=== PATIENT | male | born 1995 | race African-American/Black ===

== ENCOUNTER 2024-10-11 09:44 | Emergency (ER) | payer SELFPAY ==
[2024-10-11 10:58] LABS: Absolute Eosinophils 0.1 K/uL (0-0.5); Absolute Lymphocytes (CBC) 0.5 K/uL (0.7-4.9); Absolute Monocytes 1.4 K/uL (0.1-1.3); Absolute Neutrophil 2.2 K/uL (1.8-8.0); Basophils % 0.4 % (0-1.3); Eosinophils % 2.5 % (0-4.4); Hematocrit 33.5 % (39.6-49.0); Lymphocytes % 12.7 % (15.3-44.8); MCH 25.9 pg (27.0-35.0); MCV 78.3 fL (80-100); MPV 6.6 fL (7.6-11.3); Monocytes % 33.9 % (3.3-12.3); Neutrophils % 50.5 % (41.7-73.7); Nucleated Red Blood Cells % 0.1 % (0-0); Platelets 287 thou/uL (152-406); RBC Red Blood Cell Count 4.27 M/uL (4.33-5.43); Red Cell Distribution Width 16.9 % (12.1-15.2)
[2024-10-11] MEDS ORDERED: ONDANSETRON 4 MG/2 ML VIAL ONE (10:58)
[2024-10-11] MEDS ORDERED: NA CHLORIDE 0.9% 1,000 ML ONE (10:58)
[2024-10-11] MEDS ORDERED: DICYCLOMINE HCL 20 MG/2 ML AMP IM ONE (10:58)
[2024-10-11 11:18] LABS: Albumin 2.9 g/dL (3.4-5.0); Albumin/Globulin Ratio 0.5 (1.1-1.8); Anion Gap 9.2 mEq/L (5.0-15.0); Bilirubin Total 0.2 mg/dL (0.2-1.0); Protein, Total 8.9 g/dL (6.4-8.2)
[2024-10-11 11:26] LABS: Potassium 2.2 mEq/L (3.5-5.1)
[2024-10-11 11:28] LABS: Atypical Lymphocytes 2 %; Band Neutrophils 4 % (0-1); Blood Morphology Comment NOT SEEN (NOT SEEN); Differential Total Cells Count 100; Eosinophils 3 % (0-3); Lymphocytes 17 % (15-42); Monocytes 21 % (0-10); Platelet Estimate ADEQ; Platelets, Giant RARE; Segmented Neutrophils 53 % (40-80); Toxic Granulation NOTED
[2024-10-11 11:48] LABS: Specific Gravity 1.013 (1.005-1.030); Sqamous Epithelial <5 /HPF (None Seen); Urine Bacteria None Seen /HPF (<20); Urine Bilirubin NEGATIVE (Negative); Urine Blood Negative (Negative); Urine Clarity Turbid (Clear); Urine Color Light-Yellow (Yellow); Urine Culture Reflex Order NOT NEEDED; Urine Glucose NEGATIVE (Negative); Urine Ketones NEGATIVE (Negative); Urine Microscopic Reflex YN ORDER UMIC; Urine Nitrite NEGATIVE (Negative); Urine Protein 1+ (Negative); Urine RBC <5 /HPF (None Seen); Urine Urobilinogen Normal (Normal); Urine WBC <5 /HPF (<5); Urine pH 6.5 (5.0-7.0)
[2024-10-11] MEDS ORDERED: KCL 20 MEQ/100 mL IVPB 100 ML IV ONE (11:59)
[2024-10-11] MEDS ORDERED: NA CHLORIDE 0.9% 500 ML ONE (11:59)
[2024-10-11] MEDS ORDERED: KETOROLAC 30 MG/ML INJ ONE (12:31)
--- NOTE | 2024-10-11 14:11 | RAD REPORT ---
EXAMINATION: CT Abdomen Pelvis W Contrast CLINICAL INDICATION: Male, 29 years old. diarrhea;Abd pain TECHNIQUE: CT abdomen and pelvis was performed, after the administration of IV contrast, as per [facility] protocol. Axial, sagittal and coronal reconstructions were obtained. One or more of the following dose reduction techniques were used: Automated exposure control, adjustment of the mA and k V according to patient size, and iterative reconstruction. Unless otherwise specified, incidental findings do not require dedicated imaging follow-up. COMPARISON: No prior exam. FINDINGS: LOWER CHEST: The visualized lung bases are clear. LIVER: Normal in size and contour. No focal lesion. BILIARY SYSTEM: No suspicious abnormalities. SPLEEN: Normal size. No focal lesion. PANCREAS: No mass, ductal dilation, or ashley-pancreatic fluid. ADRENALS: Normal; no mass. KIDNEYS: Normal size and contour. No hydronephrosis. URINARY BLADDER: Suboptimally distended limiting evaluation. GASTROINTESTINAL TRACT: Mild mucosal thickening in hyperenhancement throughout the colon, especially the descending colon, with fluid opacification of the nondistended colon. No evidence of free air, significant intra-abdominal free fluid, bowel obstruction or abscess. APPENDIX: Normal appendix. LYMPH NODES: No lymphadenopathy. MUSCULOSKELETAL: No acute or suspicious osseous abnormality. ADDITIONAL FINDINGS: None. IMPRESSION: Mild mucosal thickening and hyperenhancement throughout the colon, may suggest nonspecific infectious or inflammatory colitis. No other acute or concerning abnormalities seen in the abdomen or pelvis.
[2024-10-11] MEDS ORDERED: metroNIDAZOLE 500 MG TABLET ONE (14:36)
[2024-10-11] MEDS ORDERED: CIPROFLOXACIN HCL 500 MG TAB ONE (14:36)
[2024-10-11] MEDS ORDERED: POTASSIUM 25 MEQ EFFERV TAB ONE ×2 (14:37→14:44)
[2024-10-11] MEDS ORDERED: FENTANYL CITR 100 MCG/2 ML ONE (14:37)
--- NOTE | 2024-10-11 15:05 | ER ---
Nurse's Notes [facility] Name: Murali Bailey Age: 29 yrs Sex: Male : 1995 Arrival Date: 10/11/2024 Time: 09:44 Bed 20 Private MD: Diagnosis: Indeterminate colitis;Hypokalemia;Diarrhea, unspecified Presentation: 10/11 10:03 Chief complaint: Patient states: nausea, diarrhea, and body chills. iw 10:03 Coronavirus screen: Client denies travel out of the [place] in the last 14 days. Ebola iw Screen: No symptoms or risks identified at this time. Initial Sepsis Screen: Does the patient meet any 2 criteria? No. Patient's initial sepsis screen is negative. Does the patient have a suspected source of infection? No. Patient's initial sepsis screen is negative. Risk Assessment: Do you want to hurt yourself or someone else? Patient reports no desire to harm self or others. Onset of symptoms was October 11, 2024. 10:03 Method Of Arrival: Ambulatory iw 10:03 Acuity: DARWIN 3 iw Triage Assessment: 10:20 General: Appears comfortable, Behavior is calm, cooperative. Pain: Complains of pain in iw abdomen Pain does not radiate. Pain currently is 8 out of 10 on a pain scale. Quality of pain is described as crampy. Neuro: Level of Consciousness is awake, alert, obeys commands, Oriented to person, place, time, situation. Cardiovascular: Capillary refill < 3 seconds Patient's skin is warm and dry. Respiratory: Airway is patent Respiratory effort is even, unlabored, Respiratory pattern is regular, symmetrical. GI: Abdomen is flat, non-distended, Bowel sounds present X 4 quads. Reports cramping, diarrhea, nausea. : No signs and/or symptoms were reported regarding the genitourinary system. Musculoskeletal: Circulation, motion, and sensation intact. Range of motion: intact in all extremities. Historical: - Allergies: 10:19 No Known Allergies; iw - PMHx: 10:19 HIV positive; iw - PSHx: 10:19 Tonsillectomy; iw - Immunization history:: Adult Immunizations up to date. - Infectious Disease History:: Denies. - Social history:: Smoking status: Patient uses street drugs, marijuana. Screenin:40 [facility] ED Fall Risk Assessment (Adult) History of falling in the last 3 months, iw including since admission No falls in past 3 months (0 pts) Confusion or Disorientation No (0 pts) Intoxicated or Sedated No (0 pts) Impaired Gait No (0 pts) Mobility Assist Device Used No (0 pt) Altered Elimination No (0 pt) Score/Fall Risk Level 0 - 2 = Low Risk Oriented to surroundings, Maintained a safe environment, Educated pt \T\ family on fall prevention, incl call for assistance when getting out of bed, Hourly rounding (assess needs \T\ fall precautionary measures) done. Abuse screen: Denies threats or abuse. Denies injuries from another. Nutritional screening: No deficits noted. Tuberculosis screening: No symptoms or risk factors identified. Assessment: 10:22 Reassessment: see triage assessment. iw 11:39 Reassessment: Patient and/or family updated on plan of care and expected duration. Pain iw level reassessed. Patient is alert, oriented x 3, equal unlabored respirations, skin warm/dry/pink. 12:40 Reassessment: Patient and/or family updated on plan of care and expected duration. Pain ha1 level reassessed. Patient is alert, oriented x 3, equal unlabored respirations, skin warm/dry/pink. going to CT. 13:05 Reassessment: back from CT. ha1 14:00 Reassessment: Patient and/or family updated on plan of care and expected duration. Pain ha1 level reassessed. Patient is alert, oriented x 3, equal unlabored respirations, skin warm/dry/pink. 15:39 GI: Abd is soft X 4 quads. me1 Vital Signs: 10:03 BP 105 / 84; Pulse 92; Resp 18 S; Temp 98.1(O); Pulse Ox 100% on R/A; Weight 48.53 kg; iw Height 5 ft. 5 in. ; 11:39 BP 107 / 82; Pulse 85; Resp 18 S; Pulse Ox 100% on R/A; iw 12:40 BP 102 / 68; Pulse 77; Resp 18 S; Pulse Ox 100% on R/A; ha1 13:00 BP 92 / 57; Pulse 81; Resp 19; Pulse Ox 100% ; me1 14:00 BP 98 / 63; Pulse 79; Resp 16; Pulse Ox 100% ; me1 15:00 BP 105 / 75; Pulse 85; Resp 16; Pulse Ox 100% ; me1 10:03 Body Mass Index 17.81 (48.53 kg, 165.1 cm) iw ED Course: 09:46 Patient arrived in ED. mr 09:49 Berny Negrete PA is PHCP. cp 09:49 Facundo Read MD is Attending Physician. cp 10:03 Patient has correct armband on for positive identification. Bed in low position. Call iw light in reach. Side rails up X 1. 10:03 Provided Education on: plan of care . iw 10:17 Anna Tejada, RN is Primary Nurse. iw 10:19 Triage completed. iw 10:35 Inserted saline lock: 20 gauge in right antecubital area, using aseptic technique. iw Blood collected. Flushed with 10 mL NS. 10:52 CBC with Diff Sent. iw 10:52 CMP Sent. iw 10:52 Lipase Sent. iw 13:06 CT Abd/Pelvis - IV Contrast Only In Process Unspecified. EDMS 15:39 No provider procedures requiring assistance completed. IV discontinued, intact, me1 bleeding controlled, No redness/swelling at site. Pressure dressing applied. 15:39 Arm band placed on Patient placed in an exam room. me1 Administered Medications: 11:10 Drug: NS 0.9% IV 1000 ml IV at 1 bolus Per protocol; to be given as a bolus over 60 iw minutes Route: IV; Rate: 1 bolus; Site: right antecubital; 14:21 Follow up: Response: No adverse reaction; IV Status: Completed infusion; IV Intake: ha1 1000ml 11:10 Drug: Dicyclomine IM 20 mg IM once Route: IM; Site: left ventrogluteal; iw 11:38 Follow up: Response: No adverse reaction ha1 11:12 Drug: Ondansetron IVP 4 mg IVP once; over 2 minutes Route: IVP; Site: right antecubital;iw 11:38 Follow up: Response: No adverse reaction; Marked relief of symptoms ha1 12:00 Drug: Potassium Chloride IV 20 mEq IV at calculated rate once; administer over 1-2 iw hours Route: IV; Rate: calculated rate; Site: right antecubital; 15:09 Follow up: Response: No adverse reaction; IV Status: Completed infusion me1 12:47 Drug: Ketorolac IVP 15 mg IVP once Route: IVP; Site: right antecubital; ha1 13:00 Follow up: Response: No adverse reaction; Marked relief of symptoms ha1 14:46 Drug: fentaNYL (PF) IVP 25 mcg IVP once Route: IVP; Site: right antecubital; me1 15:09 Follow up: Response: No adverse reaction; Pain is decreased me1 14:46 Drug: Potassium PO Effervescent Tablet 50 mEq PO once; dissolve in 4 ounces of water or me1 juice Route: PO; 15:09 Follow up: Response: No adverse reaction me1 14:46 Drug: Potassium PO Effervescent Tablet 25 mEq PO once; dissolve in 4 ounces of water or me1 juice Route: PO; 15:09 Follow up: Response: No adverse reaction me1 14:46 Drug: Ciprofloxacin PO 500 mg PO once Route: PO; me1 15:09 Follow up: Response: No adverse reaction me1 14:46 Drug: metroNIDAZOLE PO 500 mg PO once Route: PO; me1 15:08 Follow up: Response: No adverse reaction me1 Medication: 11:41 VIS not applicable for this client. iw Intake: 14:21 IV: 1000ml; Total: 1000ml. ha1 Outcome: 15:05 Discharge ordered by MD. cp 15:39 Discharged to home ambulatory, la1 15:39 Condition: stable 15:39 Discharge instructions given to patient, Instructed on discharge instructions, follow up and referral plans. medication usage, Demonstrated understanding of instructions, follow-up care, medications, Prescriptions given X 4, 15:40 Patient left the ED. la1 Signatures: Dispatcher [employer] EDCiara Tejeda, Raudel Starks mr Anna Tejada RN JUAREZ iw Berny Negrete PA PA cp Amparo Jin RN RN 1 Ilene Harrison RN RN la1
--- NOTE | 2024-10-11 15:05 | EDPHYS ---
Physician Documentation [facility] Name: Murali Bailey Age: 29 yrs Sex: Male : 1995 Arrival Date: 10/11/2024 Time: 09:44 Bed 20 Private MD: ED Physician Facundo Read HPI: 10/11 10:27 This 29 yrs old Black Male presents to ER via Ambulatory with complaints of Abdominal cp Pain, Diarrhea. 10:27 The patient presents with abdominal pain and diarrhea. cp 10:27 Onset: The symptoms/episode began/occurred for past several weeks. Associated signs and cp symptoms: Pertinent negatives: blood in stools, constipation, fever, vomiting. 10:27 Patient reports being hospitalized about 1 month ago for similar symptoms and being cp diagnosed with intestinal infection. Reports being off HIV antiviral medications and recent move to [place]. Historical: - Allergies: 10:19 No Known Allergies; iw - PMHx: 10:19 HIV positive; iw - PSHx: 10:19 Tonsillectomy; iw - Immunization history:: Adult Immunizations up to date. - Infectious Disease History:: Denies. - Social history:: Smoking status: Patient uses street drugs, marijuana. ROS: 10:30 Constitutional: Negative for body aches, fever, poor PO intake, cp 10:30 Eyes: Negative for injury, pain, redness, and discharge, cp 10:30 Abdomen/GI: Positive for abdominal pain, diarrhea, Negative for vomiting, constipation, black/tarry stool, rectal bleeding, Exam: 10:35 Constitutional: The patient appears in no acute distress, alert, awake, non-toxic, well cp developed, thin 10:35 Head/Face: Normocephalic, atraumatic. cp 10:35 Eyes: Periorbital structures: appear normal, Conjunctiva: normal, no exudate, no cp injection, Sclera: no appreciated abnormality, Lids and lashes: appear normal, bilaterally, 10:35 ENT: External ear(s): are unremarkable, Nose: is normal, Mouth: Lips: moist, Oral mucosa: moist, Posterior pharynx: Airway: no evidence of obstruction, patent, 10:35 Neck: ROM/movement: is normal, is supple, without pain, no range of motions limitations, 10:35 Chest/axilla: Inspection: normal, 10:35 Cardiovascular: Rate: normal, Rhythm: regular, 10:35 Respiratory: the patient does not display signs of respiratory distress, Respirations: normal, no use of accessory muscles, no retractions, labored breathing, is not present, Breath sounds: are clear throughout, no decreased breath sounds, no stridor, no wheezing, 10:35 Abdomen/GI: Inspection: abdomen appears normal, Bowel sounds: active, all quadrants, Palpation: soft, in all quadrants, mild abdominal tenderness, in all quadrants, 10:35 Back: CVA tenderness, is absent, 10:35 Neuro: Orientation: to person, place \T\ time. Mentation: is normal, Vital Signs: 10:03 BP 105 / 84; Pulse 92; Resp 18 S; Temp 98.1(O); Pulse Ox 100% on R/A; Weight 48.53 kg; iw Height 5 ft. 5 in. ; 11:39 BP 107 / 82; Pulse 85; Resp 18 S; Pulse Ox 100% on R/A; iw 12:40 BP 102 / 68; Pulse 77; Resp 18 S; Pulse Ox 100% on R/A; ha1 13:00 BP 92 / 57; Pulse 81; Resp 19; Pulse Ox 100% ; me1 14:00 BP 98 / 63; Pulse 79; Resp 16; Pulse Ox 100% ; me1 15:00 BP 105 / 75; Pulse 85; Resp 16; Pulse Ox 100% ; me1 10:03 Body Mass Index 17.81 (48.53 kg, 165.1 cm) iw MDM: 10:04 Medical Screening Exam initiated cp 15:05 Data reviewed: vital signs, nurses notes, lab test result(s), radiologic studies, CT cp scan, and as a result, I will discharge patient. 15:05 Differential diagnosis: appendicitis, bowel obstruction, cholecystitis, Cholelithiasis, cp diverticulitis, gastritis, non-specific abd pain, pancreatitis, Pyelonephritis, urinary tract infection. I considered the following discharge prescriptions or medication management in the emergency department Medications were administered in the Emergency Department. See MAR. Care significantly affected by the following chronic conditions: HIV. Counseling: I had a detailed discussion with the patient and/or guardian regarding the historical points, exam findings, and any diagnostic results supporting the discharge/admit diagnosis, lab results, radiology results, to return to the emergency department if symptoms worsen or persist or if there are any questions or concerns that arise at home. Response to treatment: the patient's symptoms have mildly improved after treatment, and as a result, I will discharge patient. Special discussion: Based on the patient's Hx, exam, and Dx evaluation, there is no indication for emergent surgery or inpatient Tx. It is understood by the patient/guardian that if the Sx's persist or worsen they need to return immediately for re-evaluation. 10/11 10:25 Order name: CBC with Diff; Complete Time: 11:46 cp 10/11 10:25 Order name: CMP; Complete Time: 11:46 cp 10/11 14:26 Interpretation: Normal except: K 2.2; TP 8.9; ALB 2.9; GLOB 6.0; A/G 0.5. cp 10/11 10:25 Order name: Lipase; Complete Time: 11:46 cp 10/11 10:25 Order name: Urinalysis w/ reflexes; Complete Time: 12:24 cp 10/11 12:24 Interpretation: Normal except: [facility] Turbid; UPROT 1+. cp 10/11 11:28 Order name: Manual Differential; Complete Time: 11:46 EDMS 10/11 10:25 Order name: CT Abd/Pelvis - IV Contrast Only; Complete Time: 14:13 cp 10/11 14:14 Interpretation: Report reviewed. cp 10/11 10:25 Order name: IV Saline Lock; Complete Time: 10:52 cp 10/11 10:25 Order name: Labs collected and sent; Complete Time: 10:52 cp Administered Medications: 11:10 Drug: NS 0.9% IV 1000 ml IV at 1 bolus Per protocol; to be given as a bolus over 60 iw minutes Route: IV; Rate: 1 bolus; Site: right antecubital; 14:21 Follow up: Response: No adverse reaction; IV Status: Completed infusion; IV Intake: ha1 1000ml 11:10 Drug: Dicyclomine IM 20 mg IM once Route: IM; Site: left ventrogluteal; iw 11:38 Follow up: Response: No adverse reaction ha1 11:12 Drug: Ondansetron IVP 4 mg IVP once; over 2 minutes Route: IVP; Site: right antecubital;iw 11:38 Follow up: Response: No adverse reaction; Marked relief of symptoms ha1 12:00 Drug: Potassium Chloride IV 20 mEq IV at calculated rate once; administer over 1-2 iw hours Route: IV; Rate: calculated rate; Site: right antecubital; 15:09 Follow up: Response: No adverse reaction; IV Status: Completed infusion me1 12:47 Drug: Ketorolac IVP 15 mg IVP once Route: IVP; Site: right antecubital; ha1 13:00 Follow up: Response: No adverse reaction; Marked relief of symptoms ha1 14:46 Drug: fentaNYL (PF) IVP 25 mcg IVP once Route: IVP; Site: right antecubital; me1 15:09 Follow up: Response: No adverse reaction; Pain is decreased me1 14:46 Drug: Potassium PO Effervescent Tablet 50 mEq PO once; dissolve in 4 ounces of water or me1 juice Route: PO; 15:09 Follow up: Response: No adverse reaction me1 14:46 Drug: Potassium PO Effervescent Tablet 25 mEq PO once; dissolve in 4 ounces of water or me1 juice Route: PO; 15:09 Follow up: Response: No adverse reaction me1 14:46 Drug: Ciprofloxacin PO 500 mg PO once Route: PO; me1 15:09 Follow up: Response: No adverse reaction me1 14:46 Drug: metroNIDAZOLE PO 500 mg PO once Route: PO; me1 15:08 Follow up: Response: No adverse reaction me1 Disposition Summary: 10/11/24 15:05 Discharge Ordered Notes: Location: Home cp Problem: new cp Symptoms: have improved cp Condition: Stable cp Diagnosis - Indeterminate colitis cp - Hypokalemia cp - Diarrhea, unspecified cp Followup: cp - With: Private Physician - When: 2 - 3 days - Reason: Recheck today's complaints Discharge Instructions: - Discharge Summary Sheet cp - Food Choices to Help Relieve Diarrhea, Adult cp - Diarrhea, Adult cp - Potassium Content of Foods cp - Hypokalemia cp - Colitis cp Forms: - Medication Reconciliation Form cp - Antibiotic Education cp - Prescription Opioid Use cp - Patient Portal Instructions cp - Leadership Thank You Letter cp Prescriptions: - Cipro 500 mg Oral Tablet - take 1 tablet ORAL route every 12 hours for 10 days; 20 tablet; Refills: 0, cp Product Selection Permitted - Potassium Chloride 10 mEq Oral capsule, extended release - take 2 tablet ORAL route every 12 hours for 5 days; 20 tablet; Refills: 0, cp Product Selection Permitted - Metronidazole 500 mg Oral Tablet - take 1 tablet ORAL route every 8 hours; 30 tablet; Refills: 0, Product cp Selection Permitted - dicyclomine 20 mg Oral tablet - take 1 tablet ORAL route 4 times per day; 30 tablet; Refills: 0, Product cp Selection Permitted Signatures: Dispatcher [employer] EDMS Anna Tejada RN RN iw Berny Negrete PA PA cp Ayala, Heidy, RN RN ha1 Ilene Harrison RN RN me1 Corrections: (The following items were deleted from the chart) 10:26 10:26 CBC+H.LAB.BRZ ordered. EDMS EDMS 10:26 10:26 COMPREHENSIVE METABOLIC PANEL+C.LAB.BRZ ordered. EDMS EDMS 10:26 10:26 LIPASE+C.LAB.BRZ ordered. EDMS EDMS 10:26 10:26 Urinalysis+U.LAB.BRZ ordered. EDMS EDMS 10:26 10:26 Fecal Leukocyte Stain+BA.LAB.BRZ ordered. EDMS EDMS 10:26 10:26 Ova and Parasites+MR.LAB.BRZ ordered. EDMS EDMS 10:26 10:26 Rotavirus Antigen+BA.LAB.BRZ ordered. EDMS EDMS 10:26 10:26 Stool Culture+BA.LAB.BRZ ordered. EDMS EDMS 10:26 10:26 C.difficile GDH Ag \T\ Toxin AB+LAB.BRZ ordered. EDMS EDMS 10:26 10:26 Abdomen Pelvis W Con+CT.RAD.BRZ ordered. EDMS EDMS
[2024-10-14 15:23] VITALS: BP 105/75; TEMP 98.1; O2SAT 100
== END 2024-10-11 15:40 | disposition home or self-care (01) ==
LOC: ER 09:44
DX: K52.3 Indeterminate colitis (principal); E87.6 Hypokalemia; F12.90 Cannabis use, unspecified, uncomplicated; Z21 Asymptomatic human immunodeficiency virus [HIV] infection status
CPT/HCPCS: 36415; 74177; 80053; 81001; 83690; 85025; 96361; 96365; 96366; 96372; 96375; 99284; J0500; J2405; J3010; J3480; J7030; J7040; Q9967

== ENCOUNTER 2024-12-26 14:16 | Emergency (ER) | payer SELFPAY ==
[2024-12-26] MEDS ORDERED: ONDANSETRON 4 MG/2 ML VIAL ONE (14:43)
[2024-12-26] MEDS ORDERED: MORPHINE 4 MG/ML SYR ONE (14:44)
[2024-12-26] MEDS ORDERED: NA CHLORIDE 0.9% 1,000 ML ONE (14:44)
[2024-12-26 14:57] LABS: Absolute Eosinophils 0.1 K/uL (0-0.5); Absolute Lymphocytes (CBC) 0.6 K/uL (0.7-4.9); Absolute Monocytes 1.4 K/uL (0.1-1.3); Absolute Neutrophil 1.9 K/uL (1.8-8.0); Basophils % 0.8 % (0-1.3); Eosinophils % 2.6 % (0-4.4); Hematocrit 33.1 % (39.6-49.0); Hemoglobin 11.3 g/dL (13.6-17.9); Lymphocytes % 14.1 % (15.3-44.8); MCH 26.3 pg (27.0-35.0); MCHC 34.1 g/dL (32.0-36.0); MCV 77.2 fL (80-100); MPV 6.9 fL (7.6-11.3); Monocytes % 34.7 % (3.3-12.3); Neutrophils % 47.8 % (41.7-73.7); Nucleated Red Blood Cells % 0.1 % (0-0); Platelets 277 thou/uL (152-406); RBC Red Blood Cell Count 4.29 M/uL (4.33-5.43); Specific Gravity 1.006 (1.005-1.030); Sqamous Epithelial None Seen /HPF (None Seen); Urine Bacteria <20 /HPF (<20); Urine Bilirubin NEGATIVE (Negative); Urine Blood 1+ (Negative); Urine Clarity Turbid (Clear); Urine Color Colorless (Yellow); Urine Culture Reflex Order NOT NEEDED; Urine Glucose NEGATIVE (Negative); Urine Ketones NEGATIVE (Negative); Urine Microscopic Reflex YN ORDER UMIC; Urine Nitrite NEGATIVE (Negative); Urine Protein 1+ (Negative); Urine RBC <5 /HPF (None Seen); Urine Urobilinogen Normal (Normal); Urine WBC <5 /HPF (<5); Urine WBC Clump Rare /HPF (None Seen); Urine Yeast (Budding) Trace /HPF (None Seen)
[2024-12-26 15:15] LABS: Albumin 3.2 g/dL (3.4-5.0); Albumin/Globulin Ratio 0.5 (1.1-1.8); Anion Gap 6.8 mEq/L (5.0-15.0); Bilirubin Total 0.3 mg/dL (0.2-1.0); Globulin 5.9 g/dL (2.3-3.5); Protein, Total 9.1 g/dL (6.4-8.2); Troponin High Sensitivity 25.5 pg/mL (<58.9)
[2024-12-26 15:18] LABS: Potassium 1.8 mEq/L (3.5-5.1)
--- NOTE | 2024-12-26 15:23 | RAD REPORT ---
EXAM: Chest Abdomen Pelvis W Cont CLINICAL INDICATION: Male, 29 years abd pain (HIV+);Chest pain TECHNIQUE: CT chest, abdomen and pelvis was performed, with IV contrast, as per department protocol. Axial, sagittal and coronal reconstructions were obtained. One or more of the following dose reduction techniques were used: Automated exposure control, adjustment of the mA and/or kV according to the patient size, and/or iterative reconstruction. Unless otherwise specified, incidental findings do not require dedicated imaging follow-up. [id number]. COMPARISON: 10/11/24 FINDINGS: THORAX: LOWER NECK AND CHEST WALL: Visualized thyroid gland and soft tissues are normal. LUNGS AND AIRWAYS: Airways are clear. No evidence of airspace or interstitial process.No suspicious a nd/or stable pulmonary nodules. PLEURA: No pleural effusion. No pneumothorax. MEDIASTINUM AND LYMPH NODES: No mediastinal mass or fluid collection. Normal size mediastinal, hilar, and axillary lymph nodes. THORACIC AORTA: No thoracic aortic aneurysm. PULMONARY ARTERIES: Caliber is within normal limits. HEART: Normal heart size. No coronary calcifications.No significant pericardial effusion. ABDOMEN/PELVIS: UPPER GI: No significant abnormality. LIVER: No significant focal abnormality. GALLBLADDER/BILE DUCTS: No biliary ductal dilatation.? PANCREAS: No mass, ductal dilation, or ashley-pancreatic fluid. SPLEEN: Unremarkable. ADRENALS: No adrenal masses. KIDNEYS AND URETERS: No hydronephrosis.No suspicious renal mass.No renal calculi. ABDOMINAL AORTA AND OTHER VESSELS: Normal caliber aorta and IVC. PERITONEUM: No abnormal free fluid. No free air. LYMPH NODES: No pathologic lymphadenopathy. ABDOMINAL WALL: Unremarkable SMALL BOWEL/COLON: Diffuse colonic wall thickening and hyperenhancement.Normal appendix. URINARY BLADDER: Underdistended but grossly unremarkable. REPRODUCTIVE ORGANS: No pathologic process. COMBINED: MUSCULOSKELETAL: Intramedullary leroy in left femur. No acute fracture identified. ADDITIONAL FINDINGS: None. IMPRESSION: No evidence of significant trauma to the chest, abdomen, or pelvis. Similar diffuse colonic wall thickening and hyperenhancement which could reflect a chronic colitis.
[2024-12-26] MEDS ORDERED: KCL 20 MEQ/100 mL IVPB 100 ML IV ONE (15:37)
[2024-12-26] MEDS ORDERED: POTASSIUM 25 MEQ EFFERV TAB ONE (15:37)
[2024-12-26] MEDS ORDERED: CIPROFLOXACIN 400mg IV 400 MG/200 ML BAG IV ONE (15:37)
[2024-12-26] MEDS ORDERED: METRONIDAZOLE 500mg IVPB 500 MG/100 ML BAG IV ONE (15:38)
[2024-12-26] MEDS ORDERED: NA CHLORIDE 0.9% 250 ML ONE (15:53)
--- NOTE | 2024-12-26 16:24 | EDPHYS ---
Physician Documentation [facility] Name: Murali Bailey Age: 29 yrs Sex: Male : 1995 Arrival Date: 12/26/2024 Time: 14:16 Bed 16 Private MD: ED Physician Facundo Read HPI: 12/26 14:50 This 29 yrs old Black Male presents to ER via Ambulatory with complaints of Abdominal sp3 Pain, Shortness Of Breath. 14:50 29-year-old male with history of HIV with unknown viral counts/loads or CD4 counts sp3 presents to the ED today for recurrent abdominal pain, diarrhea and mild vomiting without blood or mucus. Patient also states she is not having chest pain and mild cough. He is not currently on any medications is not seeing anybody for his HIV or other health concerns. He states he just moved down here from [place]. He denies fever, headache, shortness of breath, dysuria or urinary symptoms, syncope, rash, or any other signs or symptoms on ROS at this time.. Historical: - Allergies: 14:26 No Known Allergies; ap3 - PMHx: 14:26 HIV positive; ap3 - PSHx: 14:26 Tonsillectomy; ap3 - Immunization history:: Client reports having NOT received the Covid vaccine. Flu vaccine is not up to date. - Infectious Disease History:: Denies. - Social history:: Smoking status: Reported history of juuling and/or vaping. Patient uses street drugs, marijuana. ROS: 14:52 Constitutional: Negative for fever, chills, and weight loss, Eyes: Negative for injury, sp3 pain, redness, and discharge, Neck: Negative for injury, pain, and swelling, Cardiovascular: Negative for chest pain, palpitations, and edema, Back: Negative for injury and pain, : Negative for injury, bleeding, discharge, and swelling, MS/Extremity: Negative for injury and deformity, Skin: Negative for injury, rash, and discoloration, Neuro: Negative for headache, weakness, numbness, tingling, and seizure, Psych: Negative for depression, anxiety, suicide ideation, homicidal ideation, and hallucinations, Allergy/Immunology: Negative for hives, rash, and allergies, Endocrine: Negative for neck swelling, polydipsia, polyuria, polyphagia, and marked weight changes, 14:52 All other systems are negative, Exam: 14:53 Constitutional: This is a well developed, well nourished patient who is awake, alert, sp3 and in no acute distress. Head/Face: Normocephalic, atraumatic. Eyes: Pupils equal round and reactive to light, extra-ocular motions intact. Lids and lashes normal. Conjunctiva and sclera are non-icteric and not injected. Cornea within normal limits. Periorbital areas with no swelling, redness, or edema. ENT: Nares patent. No nasal discharge, no septal abnormalities noted. External auditory canals are clear. Oropharynx with no redness, swelling, or masses, exudates, or evidence of obstruction, uvula midline. Mucous membranes moist. Neck: Trachea midline, no thyromegaly or masses palpated, and no cervical lymphadenopathy. Supple, full range of motion without nuchal rigidity, or vertebral point tenderness. No Meningismus. Chest/axilla: Normal chest wall appearance and motion. Nontender with no deformity. No lesions are appreciated. Cardiovascular: Regular rate and rhythm with a normal S1 and S2. No gallops, murmurs, or rubs. Normal PMI, no JVD. No pulse deficits. Respiratory: Lungs have equal breath sounds bilaterally, clear to auscultation and percussion. No rales, rhonchi or wheezes noted. No increased work of breathing, no retractions or nasal flaring. Back: No spinal tenderness. No costovertebral tenderness. Full range of motion. Skin: Warm, dry with normal turgor. Normal color with no rashes, no lesions, and no evidence of cellulitis. MS/ Extremity: Pulses equal, no cyanosis. Neurovascular intact. Full, normal range of motion. Neuro: Awake and alert, GCS 15, oriented to person, place, time, and situation. Cranial nerves II-XII grossly intact. Motor strength 5/5 in all extremities. Sensory grossly intact. Cerebellar exam normal. Normal gait. Psych: Awake, alert, with orientation to person, place and time. Behavior, mood, and affect are within normal limits. 14:53 Abdomen/GI: Mild pain diffusely to palpation without peritoneal signs, rebound or guarding. Patient is underweight., 16:01 ECG was reviewed by the Attending Physician. EKG demonstrates normal sinus rhythm at 69 sp3 bpm with first-degree AV block at 204 ms UT interval, normal other intervals, normal axis, normal QRS, normal ST/T-segment's with small U waves also present due to hypokalemia. Vital Signs: 14:24 BP 92 / 66; Pulse 93; Resp 17; Temp 98.7; Pulse Ox 100% ; Height 5 ft. 3 in. ; ap3 15:58 BP 101 / 82; Pulse 81; Resp 18; Pulse Ox 97% ; cm10 16:30 BP 104 / 78; Pulse 82; Resp 15; Pulse Ox 100% on R/A; cm10 17:18 Weight 48.99 kg (M); cm10 17:30 BP 92 / 58; Pulse 71; Resp 15; Pulse Ox 100% on R/A; cm10 18:07 BP 92 / 61; Pulse 67; Resp 15; Pulse Ox 100% on R/A; cm10 MDM: 14:29 Medical Screening Exam initiated sp3 14:53 Data reviewed: vital signs, nurses notes, old medical records, lab test result(s), sp3 radiologic studies. ED course: 21-year-old male with HIV and unknown viral loads recounts now with recurrent abdominal pain and chest pain and diarrhea. Workup will be broad and include general labs, CT scan of the chest abdomen pelvis and general supportive care. Pain medication was initially ordered however patient is now in the room eating fast food in no acute distress. We will hold meds but still continue with diagnostics and discharge home if negative. Differential diagnosis includes general abdominal cramps, HIV related pathology, viral illness, foodborne illness, among others.. 16:22 ED course: Given EKG changes with hypokalemia, continued colitis, and unknown HIV sp3 counts, we will admit patient for IV antibiotics and further workup diagnostics.. 17:15 ED course: Internal medicine saw patient and papo discussed with ID Dr. Goodrich (who sp3 is not on-call). He confirmed that patient had a CD4 count of 64 on last available data. Due to his immunocompromise state, prior Giardia, patient will need admission and urgent ID consult and probable medication for AIDS level infection. We will transfer him to [facility] for specialized care that he needs.. 12/26 14:30 Order name: CBC with Diff; Complete Time: 15:20 sp3 12/26 14:30 Order name: CMP; Complete Time: 15:20 sp3 12/26 14:30 Order name: Lipase; Complete Time: 15:20 sp3 12/26 14:30 Order name: Urinalysis w/ reflexes; Complete Time: 15:20 sp3 12/26 14:30 Order name: Troponin High Sensitivity; Complete Time: 15:20 sp3 12/26 15:09 Order name: Chest Abdomen Pelvis W Cont; Complete Time: 15:25 EDMS 12/26 14:30 Order name: IV Saline Lock; Complete Time: 14:44 sp3 12/26 14:30 Order name: Labs collected and sent; Complete Time: 14:44 sp3 12/26 15:21 Order name: EKG - Nurse/Tech; Complete Time: 16:02 sp3 Administered Medications: 14:56 Not Given (Physician Discretion): ondansetron 4 mg IVP once; over 2 minutes cm10 14:56 Not Given (Physician Discretion): morphineor iv 4 mg IVP once over 4 mins cm10 14:56 Drug: NS 0.9% IV 1000 ml IV at 1 bolus Per protocol; to be given as a bolus over 60 cm10 minutes Route: IV; Rate: 1 bolus; Site: left antecubital; 15:45 Follow up: IV Status: Completed infusion; IV Intake: 1000ml cm10 15:51 Drug: Ciprofloxacin IVPB 400 mg 200 ml IVPB once over 60 mins Volume: 200 ml; Route: cm10 IVPB; Infused Over: 60 mins; Site: left antecubital; 17:09 Follow up: Response: No adverse reaction; IV Status: Completed infusion; IV Intake: cm10 200ml 15:52 Drug: Potassium PO Effervescent Tablet 50 mEq PO once; dissolve in 4 ounces of water or cm10 juice Route: PO; 17:09 Follow up: Response: Other; Pt noted to not taken. cm10 15:52 Drug: Potassium Chloride IV 20 mEq IV at calculated rate once; administer over 1-2 cm10 hours Route: IV; Rate: calculated rate; Site: left antecubital; 18:08 Follow up: Response: No adverse reaction; IV Status: Completed infusion; IV Intake: cm10 100ml 17:09 Drug: metroNIDAZOLE IVPB 500 mg 100 ml IVPB at 200 ml/hr once over 30 mins Volume: 100 cm10 ml; Route: IVPB; Rate: 200 ml/hr; Infused Over: 30 mins; Site: left antecubital; 18:07 Follow up: Response: No adverse reaction; IV Status: Completed infusion; IV Intake: cm10 100ml 17:09 Drug: Ketorolac IVP 15 mg IVP once Route: IVP; Site: left antecubital; cm10 18:12 Follow up: Response: No adverse reaction cm10 18:08 Drug: Ertapenem IVPB 750 mg IVPB once over 30 mins; (mix in 100 mL NS) Route: IVPB; cm10 Infused Over: 30 mins; Site: left antecubital; 18:43 Follow up: Response: No adverse reaction; IV Status: Completed infusion; IV Intake: cm10 100ml Disposition Summary: 12/26/24 17:15 Transfer Ordered Notes: Transfer Location: [facility] sp3 Reason: Higher level of care sp3 Condition: Stable(12/26/24 17:15) sp3 Problem: an acute exacerbation(12/26/24 17:15) sp3 Symptoms: have worsened(12/26/24 17:15) sp3 Accepting Physician: [facility] infectious disease(12/26/24 18:43) cm10 Diagnosis - Immunocompromise state, colitis, early sepsis, hypokalemia sp3 Forms: - Medication Reconciliation Form sp3 - SBAR form sp3 Signatures: Dispatcher [employer] EDSvitlana Driscoll RN RN ap3 Facundo Read MD MD sp3 Alyson Briggs RN RN cm10 Corrections: (The following items were deleted from the chart) 14:31 14:31 Chest Abdomen W/ Con+CT.RAD.BRZ ordered. EDND EDMS 16:30 16:23 Inpatient Admission sp3 sp3 16:30 16:23 Telemetry/MedSurg (Inpatient) sp3 sp3 16:30 16:23 sp3 sp3 17:14 16:23 Larry Mckeon sp3 sp3 17:14 16:23 Stable sp3 sp3 17:14 16:23 an acute exacerbation sp3 sp3 17:14 16:23 have worsened sp3 sp3 17:14 16:23 Standard sp3 sp3 17:14 16:23 Colitis, gastroenteritis, hypokalemia, dehydration sp3 sp3 17:14 16:30 Observation sp3 sp3 17:14 16:30 Telemetry/MedSurg (observation) sp3 sp3 17:14 16:30 3 sp3 17:31 17:15 ED course: Internal medicine saw patient and consulted as well as talk to ID DrWisam Goodrich. He confirmed that patient had a CD4 count of 64 on last available data. Due to his immunocompromise state, prior Giardia, patient will need admission and urgent ID consult and probable medication for AIDS level infection.. sp3 18:43 17:15 [facility] infectious disease sp3 cm10
--- NOTE | 2024-12-26 16:24 | ER ---
Nurse's Notes [facility] Name: Murali Bailey Age: 29 yrs Sex: Male : 1995 Arrival Date: 12/26/2024 Time: 14:16 Bed 16 Private MD: Diagnosis: Immunocompromise state, colitis, early sepsis, hypokalemia Presentation: 12/26 14:24 Chief complaint: Patient states: he has been having abdominal pain and diarrhea for a ap3 couple of months, but then a few days ago he started having chest pain as well as shortness of breath when he walks. patient reports nausea and vomiting as well. Coronavirus screen: At this time, the client does not indicate any symptoms associated with coronavirus-19. Ebola Screen: No symptoms or risks identified at this time. Initial Sepsis Screen: Does the patient meet any 2 criteria? HR > 90 bpm. Does the patient have a suspected source of infection? No. Patient's initial sepsis screen is negative. Risk Assessment: Do you want to hurt yourself or someone else? Patient reports no desire to harm self or others. Onset of symptoms was December 23, 2024. 14:24 Method Of Arrival: Ambulatory ap3 14:24 Acuity: DARWIN 3 ap3 Triage Assessment: 14:27 General: Appears in no apparent distress. slender, Behavior is calm, cooperative, ap3 appropriate for age. Pain: Complains of pain in chest and abdomen. Neuro: Level of Consciousness is awake, alert, obeys commands, Oriented to person, place, time, situation, Appropriate for age Gait is steady. Cardiovascular: Patient's skin is warm and dry. Cardiovascular: Reports chest pain, shortness of breath. Respiratory: Reports shortness of breath on exertion Airway is patent Respiratory effort is even, unlabored, Respiratory pattern is regular, symmetrical. GI: Reports lower abdominal pain, upper abdominal pain, diarrhea, nausea, vomiting. Historical: - Allergies: 14:26 No Known Allergies; ap3 - PMHx: 14:26 HIV positive; ap3 - PSHx: 14:26 Tonsillectomy; ap3 - Immunization history:: Client reports having NOT received the Covid vaccine. Flu vaccine is not up to date. - Infectious Disease History:: Denies. - Social history:: Smoking status: Reported history of juuling and/or vaping. Patient uses street drugs, marijuana. Screenin:27 Abuse screen: Denies threats or abuse. Nutritional screening: No deficits noted. ap3 Tuberculosis screening: No symptoms or risk factors identified. 18:42 [facility] ED Fall Risk Assessment (Adult) History of falling in the last 3 months, cm10 including since admission No falls in past 3 months (0 pts) Confusion or Disorientation No (0 pts) Intoxicated or Sedated No (0 pts) Impaired Gait No (0 pts) Mobility Assist Device Used No (0 pt) Altered Elimination No (0 pt) Score/Fall Risk Level 0 - 2 = Low Risk Oriented to surroundings, Provided non-skid footwear, Hourly rounding (assess needs \T\ fall precautionary measures) done. Assessment: 14:45 Reassessment: DESPITE STAFF DIRECTION TO REMAIN NPO, PT OBSERVED EATING MINI-PIZZAS AND bp HOT WINGS WITH NO DIFFICULTY OR NAUSEA. 14:56 General: Appears in no apparent distress. comfortable, Behavior is calm, cooperative. cm10 General: PT STATES THAT HE ONLY HAS PAIN AFTER EATING. PT OBSERVED EATING AT THIS TIME AND DENIES PAIN.. Pain: Denies pain. Neuro: No deficits noted. Level of Consciousness is awake, alert, obeys commands, Oriented to person, place, time, situation, Appropriate for age. Respiratory: No deficits noted. Airway is patent Respiratory effort is even, unlabored. GI: No deficits noted. Abdomen is flat, non-distended. 15:58 Reassessment: Patient appears in no apparent distress at this time. Patient and/or cm10 family updated on plan of care and expected duration. Pain level reassessed. Patient is alert, oriented x 3, equal unlabored respirations, skin warm/dry/pink. 18:00 Reassessment: Patient appears in no apparent distress at this time. Patient and/or cm10 family updated on plan of care and expected duration. Pain level reassessed. Patient is alert, oriented x 3, equal unlabored respirations, skin warm/dry/pink. 18:27 General: ATTEMPTED TO CALL REPORT. WAS TOLD TO CALL BACK DUE TO THEM DOING SHIFT cm10 CHANGE.. Vital Signs: 14:24 BP 92 / 66; Pulse 93; Resp 17; Temp 98.7; Pulse Ox 100% ; Height 5 ft. 3 in. ; ap3 15:58 BP 101 / 82; Pulse 81; Resp 18; Pulse Ox 97% ; cm10 16:30 BP 104 / 78; Pulse 82; Resp 15; Pulse Ox 100% on R/A; cm10 17:18 Weight 48.99 kg (M); cm10 17:30 BP 92 / 58; Pulse 71; Resp 15; Pulse Ox 100% on R/A; cm10 18:07 BP 92 / 61; Pulse 67; Resp 15; Pulse Ox 100% on R/A; cm10 ED Course: 14:24 Patient arrived in ED. ap3 14:24 Facundo Read MD is Attending Physician. sp3 14:26 Triage completed. ap3 14:27 Arm band placed on right wrist. ap3 14:44 Initial lab(s) drawn, by me, sent to lab. Urine collected: clean catch specimen. bp Inserted saline lock: 20 gauge in left antecubital area, using aseptic technique. Blood collected. Flushed with 10 mL NS. 14:56 Alyson Briggs, JUAREZ is Primary Nurse. cm10 15:09 Chest Abdomen Pelvis W Cont In Process Unspecified. EDMS 15:18 Notified ED physician of a critical lab result(s). potassium 1.8. jl7 15:57 Client placed on continuous cardiac and pulse oximetry monitoring. NIBP monitoring cm10 applied. pr internship on. 16:23 Larry Mckeon MD is Hospitalizing Provider. sp3 17:16 [facility] CALLED TO INITIATE TRANSFER, SPOKE WITH ROB. ty 18:09 [facility] CALLED TO INITIATE PATIENT TRANSFER, SPOKE WITH CARLOS. ty 18:41 Provided Education on:. Report given to JUAREZ PRIDE AT [facility]. cm10 18:42 Patient has correct armband on for positive identification. cm10 18:42 No provider procedures requiring assistance completed. Patient transferred, IV remains cm10 in place. 18:45 Report given to ELIZABETH WITH [facility]. PT LEAVING A\T\OX4, RESPIRATIONS EVEN AND cm10 UNLABORED. Administered Medications: 14:56 Not Given (Physician Discretion): ondansetron 4 mg IVP once; over 2 minutes cm10 14:56 Not Given (Physician Discretion): morphineor iv 4 mg IVP once over 4 mins cm10 14:56 Drug: NS 0.9% IV 1000 ml IV at 1 bolus Per protocol; to be given as a bolus over 60 cm10 minutes Route: IV; Rate: 1 bolus; Site: left antecubital; 15:45 Follow up: IV Status: Completed infusion; IV Intake: 1000ml cm10 15:51 Drug: Ciprofloxacin IVPB 400 mg 200 ml IVPB once over 60 mins Volume: 200 ml; Route: cm10 IVPB; Infused Over: 60 mins; Site: left antecubital; 17:09 Follow up: Response: No adverse reaction; IV Status: Completed infusion; IV Intake: cm10 200ml 15:52 Drug: Potassium PO Effervescent Tablet 50 mEq PO once; dissolve in 4 ounces of water or cm10 juice Route: PO; 17:09 Follow up: Response: Other; Pt noted to not taken. cm10 15:52 Drug: Potassium Chloride IV 20 mEq IV at calculated rate once; administer over 1-2 cm10 hours Route: IV; Rate: calculated rate; Site: left antecubital; 18:08 Follow up: Response: No adverse reaction; IV Status: Completed infusion; IV Intake: cm10 100ml 17:09 Drug: metroNIDAZOLE IVPB 500 mg 100 ml IVPB at 200 ml/hr once over 30 mins Volume: 100 cm10 ml; Route: IVPB; Rate: 200 ml/hr; Infused Over: 30 mins; Site: left antecubital; 18:07 Follow up: Response: No adverse reaction; IV Status: Completed infusion; IV Intake: cm10 100ml 17:09 Drug: Ketorolac IVP 15 mg IVP once Route: IVP; Site: left antecubital; cm10 18:12 Follow up: Response: No adverse reaction cm10 18:08 Drug: Ertapenem IVPB 750 mg IVPB once over 30 mins; (mix in 100 mL NS) Route: IVPB; cm10 Infused Over: 30 mins; Site: left antecubital; 18:43 Follow up: Response: No adverse reaction; IV Status: Completed infusion; IV Intake: cm10 100ml Medication: 18:42 VIS not applicable for this client. cm10 Intake: 15:45 IV: 1000ml; Total: 1000ml. cm10 17:09 IV: 200ml; Total: 1200ml. cm10 18:07 IV: 100ml; Total: 1300ml. cm10 18:08 IV: 100ml; Total: 1400ml. cm10 18:43 IV: 100ml; Total: 1500ml. cm10 Outcome: 16:23 Decision to Hospitalize by Provider. sp3 17:15 ER care complete, transfer ordered by . sp3 18:42 Transferred by ground EMS [facility] to [facility], Transfer cm10 form completed. 18:42 Condition: good 18:42 Instructed on the need for transfer, 18:43 Patient left the ED. cm10 Signatures: Dispatcher [employer] EDMS Pankaj Andrade RN RN jl7 Zelalem Flood RN RN Svitlana Nuno RN RN ap3 Facundo Read MD MD sp3 Alyson Briggs RN RN cm10 Renaldo Bains Corrections: (The following items were deleted from the chart) 17:10 16:36 Response: No adverse reaction cm10 cm10
[2024-12-26] MEDS ORDERED: KETOROLAC 30 MG/ML INJ ONE (16:39)
--- NOTE | 2024-12-26 16:56 | P.HP ---
Certification for Inpatient Patient admitted to: Observation With expected LOS: <2 Midnights Practitioner: I am a practitioner with admitting privileges, knowledge of patient current condition, hospital course, and medical plan of care. Services: Services provided to patient in accordance with Admission requirements found in Title 42 Section 412.3 of the Code of Federal Regulations Patient History Date of Service: 12/26/24 Reason for admission: diarrhea History of Present Illness: 29-year-old male with history of HIV currently off treatment presents to the ER with complaints of diarrhea. Symptoms ongoing for greater than 2 months. He reports having some abdominal pain. He was able to tolerate a diet today. Denies any recent fevers. Did report some shortness of breath and nausea. In the ER he was noted to have severe hypokalemia. Recommended admission. He currently does not follow with an infectious disease clinic Per chart review noted to have previous Giardia, HBV, Campylobacter, Shigella Review of Systems 10-point ROS is otherwise unremarkable Physical Examination - Physical Exam General: Alert, Cachectic Respiratory: Clear to auscultation bilaterally, Normal air movement Cardiovascular: Regular rate/rhythm, Normal S1 S2 Gastrointestinal: Soft and benign, Tenderness Musculoskeletal: No swelling Integumentary: No rashes - Studies Laboratory Data (last 24 hrs) 12/26/24 12/26/24 14:45 14:45 WBC 4.00 L Hgb 11.3 L Hct 33.1 L Plt Count 277 Sodium 134 L Potassium 1.8 L* BUN 13 Creatinine 1.23 Glucose 65 L Total Bilirubin 0.3 AST 18 ALT 18 Alkaline Phosphatase 88 Lipase 50 Assessment and Plan - Problems (Diagnosis) (1) HIV (human immunodeficiency virus infection) Current Visit: Yes Status: Acute - Plan 29-year-old male presents with abdominal pain diarrhea and not feeling well. Noted to have multiple infections in the past including Giardia, Campylobacter, Shigella, syphilis as well as low CD4 count of 64. Currently off treatment. suspected AIDS Colitis History of multiple GI infections, reported Shigella, Campylobacter, Giardia Severe hypokalemia Recommendations: 1. replace K, 40 oral and 40 IV 2. clear liquid diet 3. check CD:4, stool studies 4. IV fluids 5. Could empiric start with Cipro IV and Flagyl IV, but consideration he may need meropenem pending stool studies 6. Transfer to tertiary center with infectious diseases, and HIV specialist - Advance Directives Does patient have a Living Will: No Does patient have a Durable POA for Healthcare: No
[2024-12-26] MEDS ORDERED: ERTAPENEM NA 1 GM in NA CHLORIDE 0.9% 100 ML IVPB ONE (17:41)
[2024-12-26 19:07] VITALS: TEMP 98.7
[2024-12-26 19:10] VITALS: O2SAT 100
[2024-12-26 19:12] VITALS: BP 92/61
--- NOTE | 2024-12-29 11:27 | EKG ---
Test Date: 2024-12-26 Test Time: 15:42:49 Forensic Science Technician: FELTON MEASUREMENT RESULTS: Intervals: Rate: 69 AK: 204 QRSD: 100 QT: 374 QTc: 400 [place]: P: 75 AK: 204 QRS: 67 T: 75 INTERPRETIVE STATEMENTS: Normal sinus rhythm Nonspecific T wave abnormality Abnormal ECG No previous ECG available for comparison Electronically Signed On 12-29-24 11:21:59 CDT by Rocael Gannon
== END 2024-12-26 18:43 | disposition short-term general hospital (02) ==
LOC: ER 14:16
DX: K52.9 Noninfective gastroenteritis and colitis, unspecified (principal); A41.9 Sepsis, unspecified organism; B20 Human immunodeficiency virus [HIV] disease; E87.6 Hypokalemia
CPT/HCPCS: 36415; 71260; 74177; 80053; 81001; 83690; 84484; 85025; 93005; 96361; 96365; 96367; 96375; 99285; J0744; J1335; J2405; J3480; J7030; J7050; Q9967